=== PATIENT | male | born 1965 | race Caucasian/White ===

== ENCOUNTER 2021-01-17 15:44 | Emergency (ER) | payer OTHER ==
[2021-01-17] MEDS ORDERED: DIPH,PERTUS(ACELL)TETVAC-LF 0.5 ML VIAL IM ONE (16:43)
[2021-01-17] MEDS ORDERED: MORPHINE SULFATE 4 MG/ML SYRINGE IM STA (16:43)
--- NOTE | 2021-01-17 17:36 | XR ---
EXAMINATION TYPE: XR finger RT DATE OF EXAM: 01/17/2021 COMPARISON: NONE HISTORY: Trauma. Pain TECHNIQUE: 3 views FINDINGS: There is laceration deformity of the tip of the thumb. There is also chip fracture of the t ip of the tuft of the distal phalanx. There is no sign of a radiopaque foreign body. IMPRESSION: Laceration deformity with chip fracture of the tuft of the distal phalanx of the thumb.
[2021-01-17] MEDS ORDERED: LIDOCAINE 1% INJ 10MG/ML (20 ML MDV) SQ ONE (17:42)
[2021-01-17] MEDS ORDERED: ceFAZolin 1,000 MG VIAL (IM USE) IM STA (17:44)
--- NOTE | 2021-01-17 17:52 | ED ---
Wound/Laceration HPI - General Chief Complaint: Wound/Laceration Stated Complaint: rt thumb lac Time Seen by Provider: 01/17/21 16:16 Source: patient Mode of arrival: ambulatory Limitations: no limitations - History of Present Illness Initial Comments: 55 year-old male patient presents to the emergency department for evaluation of right thumb injury. Patent crushed his finger in a hydraulic log splitter about an hour ago. Denies taking any medication for pain. Denies any other injuries. Unsure when his last tetanus vaccine was updated. Patient reports significant pain. - Related Data Home Medications Medication Instructions Recorded Confirmed Naproxen 500 mg PO Q12H 01/17/21 01/17/21 Omeprazole 40 mg PO DAILY 01/17/21 01/17/21 Previous Rx's Medication Instructions Recorded Cephalexin [Keflex] 500 mg PO Q6H #28 cap 01/17/21 Ibuprofen [Motrin] 600 mg PO Q8HR PRN #30 tab 01/17/21 Allergies Allergy/AdvReac Type Severity Reaction Status Date / Time meperidine [From Demerol] Allergy Anaphylaxis Verified 01/17/21 18:52 Review of Systems ROS Statement: Those systems with pertinent positive or pertinent negative responses have been documented in the HPI. ROS Other: All systems not noted in ROS Statement are negative. Past Medical History Past Medical History: No Reported History History of Any Multi-Drug Resistant Organisms: None Reported Past Surgical History: No Surgical Hx Reported Past Psychological History: No Psychological Hx Reported Smoking Status: Never smoker Past Alcohol Use History: Occasional Past Drug Use History: None Reported General Exam Limitations: no limitations General appearance: alert, in no apparent distress, other (This is a well- developed, well-nourished adult male patient in no acute distress. Vital signs upon presentation temperature 97.7F, pulse 94, respirations 20, blood pressure 146/90, pulse ox 99% on room air.) Respiratory exam: Present: normal lung sounds bilaterally. Absent: respiratory distress, wheezes, rales, rhonchi, stridor Cardiovascular Exam: Present: regular rate, normal rhythm, normal heart sounds. Absent: systolic murmur, diastolic murmur, rubs, gallop, clicks Extremities exam: Present: full ROM, normal capillary refill, other (Open wound right thumb, there is nail avulsion, no active bleeding. Soft tissue swelling noted. Skin is otherwise pink, warm, dry. Radial pulses 2+ and equal bilaterally.). Absent: tenderness, pedal edema, joint swelling, calf tenderness Neurological exam: Present: alert, oriented X3, CN II-XII intact Psychiatric exam: Present: normal affect, normal mood Skin exam: Present: warm, dry, intact, normal color. Absent: rash Course Vital Signs 01/17/21 01/17/21 15:46 19:59 Temperature 97.7 F 98.1 F Pulse Rate 94 62 Respiratory 20 18 Rate Blood Pressure 146/90 140/95 O2 Sat by Pulse 99 97 Oximetry Procedures - Laceration Laceration #1 Consent Obtained: verbal consent Indication: laceration Site: hand (Right thumb) Size (cm): 3 Description: flap, avulsion, irregular Anesthesia Technique: nerve block Amount (mls): 5 (Bupivicaine 0.5%) Pre-repair: wound explored, irrigated extensively, wound margins revised Type of Sutures: nylon Size of Sutures: 4-0 Number of Sutures: 5 Technique: simple, interrupted Patient Tolerated Procedure: well, no complications Additional Comments: Skin flap left open, pulp injury - Orthopedic Splinting/Casting Injury #1 Side: right Upper Extremity Injury Location: hand Upper Extremity Immobilizer: thumb spica, Santy wrap, synthetic pre-padded splint Medical Decision Making - Medical Decision Making 55-year-old male patient presents to the emergency department today for evaluation of injury to the right thumb. Patient wishes finger and a log splitter prior to arrival. Physical examination did reveal complete nail avulsion, extensive laceration injury to the tip of the thumb. Sutures were placed where possible. Distal tip is open, extensive pulp injury. X-ray showed a chip fracture of the tuft of the distal phalanx. Patient was placed in a thumb spica splint. Did discuss the case with Leslee Raymundo PA-c [facility], instructions to close it as much as possible and follow up with ortho hand specialist this week. Patient was given Kefzol. Tetanus updated. Given pain medication. He will be discharged, wound care instructions given. Return parameters discussed in detail. He verbalizes understanding and agrees with this plan. Case discussed with my attending Dr. Velásquez. - Radiology Data Radiology results: report reviewed, image reviewed Disposition Clinical Impression: Laceration of right thumb, Nail avulsion, finger, Avulsion of skin of right thumb Disposition: HOME SELF-CARE Condition: Good Instructions (If sedation given, give patient instructions): Care For Your Stitches (ED), Laceration (ED), Skin Avulsion (ED), Nail Avulsion (ED) Additional Instructions: Change dressing once daily. Apply bacitracin ointment to the areas as directed. Follow-up with the hand specialist as soon as possible, call Tuesday for an appointment. Return to the emergency department for any new, worsening, or concerning symptoms. Prescriptions: Cephalexin [Keflex] 500 mg PO Q6H #28 cap Ibuprofen [Motrin] 600 mg PO Q8HR PRN #30 tab PRN Reason: Pain Is patient prescribed a controlled substance at d/c from ED?: No Referrals: [facility],Clinic [Primary Care Provider] - 1-2 days Gustavo Leon DO [Doctor of Osteopathic Medicine] - 1-2 days Time of Disposition: 19:51
[2021-01-17] MEDS ORDERED: BACITRACIN OINT 1 EACH PACKET TOPICAL ONE (17:57)
[2021-01-17] MEDS ORDERED: BUPIVACAINE (PF) 0.5% 30 ML VIAL SQ STA (18:07)
[2021-01-17] MEDS ORDERED: ACET/COD 300 MG/30 MG STARTER PACK 6 TAB BTL PO STA (19:51)
[2021-01-17 20:01] VITALS: BP 140/95; PULSE 62; RESP 18; TEMP 98.1
== END 2021-01-17 20:00 | disposition home or self-care (01) ==
LOC: EC 15:44
DX: S61.111A Laceration without foreign body of right thumb with damage to nail, initial encounter (principal); Z79.1 Long term (current) use of non-steroidal anti-inflammatories (NSAID); Z79.899 Other long term (current) drug therapy; Z88.5 Allergy status to narcotic agent; W23.0XXA Caught, crushed, jammed, or pinched between moving objects, initial encounter
CPT/HCPCS: 73140; 90715; 12002; 99283; 96372; 90471; J2270; J0690

== ENCOUNTER 2022-11-17 22:10 | Emergency (ER) | payer OTHER ==
[2022-11-17 22:24] VITALS: BP 124/87; PULSE 87; RESP 20; TEMP 97.6
[2022-11-17 23:02] LABS: Basophils # (A) 0.1 k/uL (0-0.2); Basophils % (A) 1 %; Eosinophils # (A) 0.2 k/uL (0-0.7); Eosinophils % (A) 2 %; HCT 45.6 % (39.0-53.0); HGB 15.2 gm/dL (13.0-17.5); Lymphocytes # (A) 3.9 k/uL (1.0-4.8); Lymphocytes % (A) 47 %; MCHC 33.3 g/dL (31.0-37.0); MCV 99.2 fL (80.0-100.0); Mean Platelet Volume 7.3; Monocytes # (A) 0.4 k/uL (0-1.0); Monocytes % (A) 4 %; Neutrophils # (A) 3.7 k/uL (1.3-7.7); Neutrophils % (A) 44 %; Platelet Count 267 k/uL (150-450); RBC 4.59 m/uL (4.30-5.90); RDW 12.4 % (11.5-15.5); WBC 8.4 k/uL (3.8-10.6)
--- NOTE | 2022-11-17 23:08 | ED ---
General Adult HPI - General Source: patient Mode of arrival: ambulatory Limitations: no limitations <Gregg Hicks - Last Filed: 11/17/22 23:06> <Elsa Colon - Last Filed: 11/17/22 23:27> <Evelyn Parker - Last Filed: 11/28/22 00:03> - General Chief complaint: Recheck/Abnormal Lab/Rx Stated complaint: Critical Lab Time Seen by Provider: 11/17/22 23:08 - History of Present Illness Initial comments: Dictation was produced using [employer] dictation software. please excuse any grammatical, word or spelling errors. Time seen by provider: 11:08 PM, 11/17/2022 Medical screening exam: 57-year-old male presents to the emergency Department for outpatient lab abnormality. Patient was getting blood work form for anticipation of yearly physical next week. He was told that his potassium 6.0. Patient denies any symptoms. Visual Physical Exam Vital signs reviewed General: Well-appearing, nontoxic, no acute distress. Head: Normocephalic, atraumatic Eyes: PERRLA, EOMI ENT: Airway patent Chest: Nonlabored breathing Skin: No visual rash, normal skin tone Neuro: Alert and oriented 3 Musculoskeletal: No gross abnormalities (Gregg Hicks) 57-year-old male with past medical history of daily alcohol usage presents emergency department for abnormal labs. He has an appointment scheduled his primary care physician next week for his routine physical. Laboratory studies conducted today and it was reported the patient's potassium was high at 6. His office called him for critical labs and to limit needed to be reevaluated at his local ER. Patient denies any symptoms. Does admit to drinking some alcohol today. No headaches or visual changes. No chest pain or shortness of breath. No other alleviating, precipitating or modifying factors (Evelyn Parker) - Related Data Home Medications Medication Instructions Recorded Confirmed Naproxen 500 mg PO Q12H 01/17/21 01/17/21 Omeprazole 40 mg PO DAILY 01/17/21 01/17/21 Previous Rx's Medication Instructions Recorded Cephalexin [Keflex] 500 mg PO Q6H #28 cap 01/17/21 Ibuprofen [Motrin] 600 mg PO Q8HR PRN #30 tab 01/17/21 Allergies Allergy/AdvReac Type Severity Reaction Status Date / Time meperidine [From Demerol] Allergy Anaphylaxis Verified 11/17/22 22:24 Review of Systems ROS Other: All systems not noted in ROS Statement are negative. <Gregg Hicks - Last Filed: 11/17/22 23:06> ROS Other: All systems not noted in ROS Statement are negative. <Elsa Colon - Last Filed: 11/17/22 23:27> ROS Other: All systems not noted in ROS Statement are negative. <Evelyn Parker - Last Filed: 11/28/22 00:03> ROS Statement: Those systems with pertinent positive or pertinent negative responses have been documented in the HPI. Past Medical History Past Medical History: No Reported History History of Any Multi-Drug Resistant Organisms: MRSA Date of last positivie culture/infection: 01/30/21 MDRO Source:: Right fifth finger Past Surgical History: Appendectomy, Orthopedic Surgery, Tonsillectomy Past Psychological History: No Psychological Hx Reported Smoking Status: Never smoker Past Alcohol Use History: Daily Past Drug Use History: None Reported <Gregg Hicks - Last Filed: 11/17/22 23:06> General Exam Limitations: no limitations <Gregg Hicks - Last Filed: 11/17/22 23:06> General appearance: alert, in no apparent distress Head exam: Present: atraumatic, normocephalic, normal inspection Eye exam: Present: normal appearance, PERRL, EOMI. Absent: scleral icterus, conjunctival injection, periorbital swelling ENT exam: Present: normal exam, mucous membranes moist Neck exam: Present: normal inspection. Absent: tenderness, meningismus, lymphadenopathy Respiratory exam: Present: normal lung sounds bilaterally. Absent: respiratory distress, wheezes, rales, rhonchi, stridor Cardiovascular Exam: Present: regular rate, normal rhythm, normal heart sounds. Absent: systolic murmur, diastolic murmur, rubs, gallop, clicks GI/Abdominal exam: Present: soft, normal bowel sounds. Absent: distended, tenderness, guarding, rebound, rigid Extremities exam: Present: normal inspection, full ROM, normal capillary refill. Absent: tenderness, pedal edema, joint swelling, calf tenderness Back exam: Present: normal inspection Neurological exam: Present: alert, oriented X3, CN II-XII intact Psychiatric exam: Present: normal affect, normal mood Skin exam: Present: warm, dry, intact, normal color. Absent: rash <Evelyn Parker - Last Filed: 11/28/22 00:03> Course Vital Signs 11/17/22 22:20 Temperature 97.6 F Pulse Rate 87 Respiratory 20 Rate Blood Pressure 124/87 O2 Sat by Pulse 95 Oximetry EKG Findings - EKG Comments: EKG Findings:: EKG demonstrates sinus rhythm rate of 72. MI interval 141. QRS 94. QTC 386. No acute ST segment elevations or depressions <Evelyn Parker - Last Filed: 11/28/22 00:03> Medical Decision Making - Lab Data Result diagrams: 11/17/22 22:50 <Gregg Hicks - Last Filed: 11/17/22 23:06> - Lab Data Result diagrams: 11/17/22 22:50 <Elsa Colon - Last Filed: 11/17/22 23:27> - Lab Data Result diagrams: 11/17/22 22:50 11/17/22 22:50 <Evelyn Parker - Last Filed: 11/28/22 00:03> - Medical Decision Making Was pt. sent in by a medical professional or institution (SKYE Dyer, CUSTOMER CARE MANAGER, urgent care, hospital, or senior living...) When possible be specific @ -[facility] Did you speak to anyone other than the patient for history (EMS, parent, family, police, friend...)? What history was obtained from this source @ -No Did you review nursing and triage notes (agree or disagree)? Why? @ -I reviewed and agree with nursing and triage notes Were old charts reviewed (outside hosp., previous admission, EMS record, old EKG, old radiological studies, urgent care reports/EKG's, senior living records)? Report findings @ -No old charts were reviewed Differential Diagnosis (chest pain, altered mental status, abdominal pain women, abdominal pain men, vaginal bleeding, weakness, fever, dyspnea, syncope, headache, dizziness, GI bleed, back pain, seizure, CVA, palpatations, mental health, musculoskeletal)? @ -hyperkalemia, david, lab error EKG interpreted by me (3pts min.). @ -yes X-rays interpreted by me (1pt min.). @ -Not done CT interpreted by me (1pt min.). @ -None done U/S interpreted by me (1pt. min.). @ -None done What testing was considered but not performed or refused? (CT, X-rays, U/S, labs)? Why? @ -None What meds were considered but not given or refused? Why? @ -None Did you discuss the management of the patient with other professionals (professionals i.e. DrJacy, PA, CUSTOMER CARE MANAGER, lab, RT, psych nurse, social work assistant, aircraft engine mechanic, teacher, corporate development officer, behavioral health case manager)? Give summary @ -None Was smoking cessation discussed for >3mins.? @ -No Was critical care preformed (if so, how long)? @ -No Were there social determinants of health that impacted care today? How? (Homelessness, low income, unemployed, alcoholism, drug addiction, transportation, low edu. Level, literacy, decrease access to med. care, prison, rehab)? @ -No Was there de-escalation of care discussed even if they declined (Discuss DNR or withdrawal of care, Hospice)? DNR status @ -No What co-morbidities impacted this encounter? (DM, HTN, Smoking, COPD, CAD, Cancer, CVA, ARF, Chemo, Hep., AIDS, mental health diagnosis, sleep apnea, morbid obesity)? @ -None Was patient admitted / discharged? Hospital course, mention meds given and route, prescriptions, significant lab abnormalities, going to OR and other pertinent info. @ -Upon arrival the patient is placed into [facility] where laboratory studies are drawn. Laboratory studies are reviewed and potassium is 4.2. Alcohol 84. Patient resides in the emergency department for almost 3 hours and is sober. Repeat labs are discussed with the patient. He is stable for discharge home at this time. He is given a copy of his lab work. Return for any new or worsening symptoms. Patient discharged home in stable condition Undiagnosed new problem with uncertain prognosis? @ -No Drug Therapy requiring intensive monitoring for toxicity (Heparin, Nitro, Insulin, Cardizem)? @ -No Were any procedures done? @ -No Diagnosis/symptom? @ -encouter for abnormal labs, normal exam Acute, or Chronic, or Acute on Chronic? @ -acute Uncomplicated (without systemic symptoms) or Complicated (systemic symptoms)? @ -uncomplicated Side effects of treatment? @ -No Exacerbation, Progression, or Severe Exacerbation? @ -No Poses a threat to life or bodily function? How? (Chest pain, [place], NH, pneumonia, PE, COPD, DKA, ARF, appy, cholecystitis, CVA, Diverticulitis, Homicidal, Suicidal, threat to staff... and all critical care pts) @ -yes (Evelyn Parker) - Lab Data Lab Results 11/17/22 11/17/22 11/17/22 Range/Units 22:50 22:50 22:50 WBC 8.4 (3.8-10.6) k/uL RBC 4.59 (4.30-5.90) m/uL Hgb 15.2 (13.0-17.5) gm/dL Hct 45.6 (39.0-53.0) % MCV 99.2 (80.0-100.0) fL MCH 33.0 (25.0-35.0) pg MCHC 33.3 (31.0-37.0) g/dL RDW 12.4 (11.5-15.5) % Plt Count 267 (150-450) k/uL MPV 7.3 Neutrophils % 44 % Lymphocytes % 47 % Monocytes % 4 % Eosinophils % 2 % Basophils % 1 % Neutrophils # 3.7 (1.3-7.7) k/uL Lymphocytes # 3.9 (1.0-4.8) k/uL Monocytes # 0.4 (0-1.0) k/uL Eosinophils # 0.2 (0-0.7) k/uL Basophils # 0.1 (0-0.2) k/uL PT 9.6 (9.0-12.0) sec INR 0.9 (<1.2) APTT 24.9 (22.0-30.0) sec Sodium 139 (137-145) mmol/L Potassium 4.2 (3.5-5.1) mmol/L Chloride 106 (98-107) mmol/L Carbon Dioxide 23 (22-30) mmol/L Anion Gap 10 mmol/L BUN 12 (9-20) mg/dL Creatinine 0.96 (0.66-1.25) mg/dL Est GFR (CKD-EPI)AfAm >90 (>60 ml/min/1.73 sqM) Est GFR (CKD-EPI)NonAf 89 (>60 ml/min/1.73 sqM) Glucose 96 (74-99) mg/dL Calcium 8.8 (8.4-10.2) mg/dL Phosphorus 5.1 H (2.5-4.5) mg/dL Magnesium 2.1 (1.6-2.3) mg/dL Total Bilirubin 0.3 (0.2-1.3) mg/dL AST 36 (17-59) U/L ALT 30 (4-49) U/L Alkaline Phosphatase 81 (38-126) U/L Total Protein 6.7 (6.3-8.2) g/dL Albumin 4.3 (3.5-5.0) g/dL Serum Alcohol 84 mg/dL Disposition <Gregg Hicks - Last Filed: 11/17/22 23:06> <Elsa Colon - Last Filed: 11/17/22 23:27> Is patient prescribed a controlled substance at d/c from ED?: No Time of Disposition: 00:58 <Evelyn Parker - Last Filed: 11/28/22 00:03> Clinical Impression: Abnormal laboratory test Disposition: HOME SELF-CARE Condition: Stable Instructions (If sedation given, give patient instructions): Normal Exam (ED) Additional Instructions: Your potassium was normal. Please follow-up with your doctor your regularly scheduled appointment Referrals: [facility],Clinic [Primary Care Provider] - 1-2 days
[2022-11-17 23:12] LABS: INR 0.9 (<1.2); Partial Thromboplastin Time 24.9 sec (22.0-30.0); Prothrombin Time 9.6 sec (9.0-12.0)
[2022-11-17 23:24] LABS: ALT 30 U/L (4-49); AST 36 U/L (17-59); African American GFR (CKD) >90 (>60 ml/min/1.73 sqM); Albumin 4.3 g/dL (3.5-5.0); Alkaline Phosphatase 81 U/L (38-126); Anion Gap 10 mmol/L; Blood Urea Nitrogen 12 mg/dL (9-20); Calcium 8.8 mg/dL (8.4-10.2); Carbon Dioxide 23 mmol/L (22-30); Chloride 106 mmol/L (98-107); Glucose 96 mg/dL (74-99); Magnesium 2.1 mg/dL (1.6-2.3); Non-African American GFR(CKD) 89 (>60 ml/min/1.73 sqM); Phosphorus 5.1 mg/dL (2.5-4.5); Potassium 4.2 mmol/L (3.5-5.1); Sodium 139 mmol/L (137-145); Total Bilirubin 0.3 mg/dL (0.2-1.3); Total Protein 6.7 g/dL (6.3-8.2)
[2022-11-17 23:29] LABS: Alcohol 84 mg/dL
== END 2022-11-18 01:05 | disposition home or self-care (01) ==
LOC: EC 22:10
DX: R79.9 Abnormal finding of blood chemistry, unspecified (principal); Z88.5 Allergy status to narcotic agent
CPT/HCPCS: 36415; 80053; 80320; 83735; 84100; 85025; 85610; 85730; 93005; 99283

== ENCOUNTER → 2022-12-22 | Outpatient (CLI) | payer OTHER ==
--- NOTE | 2022-12-22 10:18 | US ---
EXAMINATION TYPE: US thyroid st tissue head/neck DATE OF EXAM: 12/22/2022 COMPARISON: NONE CLINICAL INDICATION: Male, 57 years old with history of R94.6 ABN THYROID FUNCTION STUDIES; Abnormal labs GLAND SIZE: Right Lobe: 5.6 x 2.5 x 1.9 cm Overall Parenchyma: homogenous Left Lobe: 5.3 x 2.2 x 1.7 cm Overall Parenchyma: homogeneous Isthmus Thickness: 0.3 cm NODULES RIGHT: # of nodules measured on right: 1 1. 0.6 X 0.4 x 0.7 cm, mid medial, solid or almost completely solid, isoechoic nodule, which is wid er than tall, with ill-defined margins, without echogenic foci. Prior size: No prior LEFT: # of nodules measured on left: 0 ISTHMUS: # of nodules measured in the isthmus: 0 Bilateral neck scanned, no evidence of lymphadenopathy. Enlarged thyroid, sub-centimeter nodule right lobe. IMPRESSION: No suspicious enlarged thyroid nodules. Follow-up can be performed as clinically indicated
== END | disposition home or self-care (01) ==
LOC: RADUSWWP 09:20
DX: R94.6 Abnormal results of thyroid function studies (principal)
CPT/HCPCS: 76536

== ENCOUNTER 2024-08-28 10:51 | Inpatient (IN) | payer OTHER ==
--- NOTE | 2024-08-28 11:27 | ED ---
Abdominal Pain HPI - General Chief Complaint: Abdominal Pain Stated Complaint: abd pain Time Seen by Provider: 08/28/24 11:09 Source: patient, RN notes reviewed Mode of arrival: ambulatory Limitations: no limitations - History of Present Illness Initial Comments: 39-year-old male presents emergency department complaint of abdominal pain. Patient states that started after eating he developed discomfort he states he felt very nauseous did have episodes of emesis. He states pain is worse in the right lower quadrant right flank and back region. Patient had a prior appendectomy no fevers or chills no chest pain or shortness of breath. Patient states pain is worse when laying flat. - Related Data Home Medications Medication Instructions Recorded Confirmed Naproxen 500 mg PO Q12H 01/17/21 01/17/21 Omeprazole 40 mg PO DAILY 01/17/21 01/17/21 Previous Rx's Medication Instructions Recorded Cephalexin [Keflex] 500 mg PO Q6H #28 cap 01/17/21 Ibuprofen [Motrin] 600 mg PO Q8HR PRN #30 tab 01/17/21 Allergies Allergy/AdvReac Type Severity Reaction Status Date / Time meperidine [From Demerol] Allergy Anaphylaxis Verified 08/28/24 14:33 Review of Systems ROS Statement: Those systems with pertinent positive or pertinent negative responses have been documented in the HPI. ROS Other: All systems not noted in ROS Statement are negative. Past Medical History Past Medical History: No Reported History History of Any Multi-Drug Resistant Organisms: MRSA Date of last positivie culture/infection: 01/30/21 MDRO Source:: Right fifth finger Past Surgical History: Appendectomy, Orthopedic Surgery, Tonsillectomy Past Psychological History: No Psychological Hx Reported Smoking Status: Never smoker Past Alcohol Use History: Daily Past Drug Use History: None Reported General Exam Limitations: no limitations General appearance: alert, in no apparent distress Head exam: Present: atraumatic, normocephalic, normal inspection Neck exam: Present: normal inspection. Absent: tenderness, meningismus, lymphadenopathy Respiratory exam: Present: normal lung sounds bilaterally. Absent: respiratory distress, wheezes, rales, rhonchi, stridor Cardiovascular Exam: Present: normal rhythm, tachycardia, normal heart sounds. Absent: systolic murmur, diastolic murmur, rubs, gallop, clicks GI/Abdominal exam: Present: soft, tenderness (Right upper quadrant tenderness), normal bowel sounds. Absent: distended, guarding, rebound, rigid Back exam: Absent: CVA tenderness (R), CVA tenderness (L) Neurological exam: Present: alert Skin exam: Present: warm, dry, intact, normal color. Absent: rash Course Vital Signs 08/28/24 11:01 Temperature 98.9 F Pulse Rate 118 H Respiratory 20 Rate Blood Pressure 121/77 O2 Sat by Pulse 96 Oximetry Medical Decision Making - Medical Decision Making Was pt. sent in by a medical professional or institution (, PA, INVESTMENT BANKER, urgent care, hospital, or detention...) When possible be specific @ -No Did you speak to anyone other than the patient for history (EMS, parent, family, police, friend...)? What history was obtained from this source @ -No Did you review nursing and triage notes (agree or disagree)? Why? @ -I reviewed and agree with nursing and triage notes Were old charts reviewed (outside hosp., previous admission, EMS record, old EKG, old radiological studies, urgent care reports/EKG's, detention records)? Report findings @ -No old charts were reviewed Differential Diagnosis (chest pain, altered mental status, abdominal pain women, abdominal pain men, vaginal bleeding, weakness, fever, dyspnea, syncope, headache, dizziness, GI bleed, back pain, seizure, CVA, palpatations, mental health, musculoskeletal)? @ -Differential Abdominal Pain Men: Appendicitis, cholecystitis, diverticulosis, ischemic bowel, pancreatitis, hepatitis, UTI, gastroenteritis, AAA, incarcerated hernia, bowel obstruction, constipation, inflammatory bowel, hepatitis, peptic ulcer disease, splenic infarction, perforated viscus, testicular torsion, this is not meant to be an all-inclusive list EKG interpreted by me (3pts min.). @ -As above X-rays interpreted by me (1pt min.). @ -None done CT interpreted by me (1pt min.). @ -CT abdomen pelvis showing evidence of acute cholecystitis. Cholecystic fluid no dilation U/S interpreted by me (1pt. min.). @ -Sound concerning for cholecystitis there is minimal fluid, no notable stones within the duct What testing was considered but not performed or refused? (CT, X-rays, U/S, lab s)? Why? @ -None What meds were considered but not given or refused? Why? @ -None Did you discuss the management of the patient with other professionals (professionals i.e. , PA, INVESTMENT BANKER, lab, RT, psych nurse, social work faculty member, aesthetician, teacher, project officer, senior case manager)? Give summary @ -Dr. rahman patient's finding and admission Was smoking cessation discussed for >3mins.? @ -No Was critical care preformed (if so, how long)? @ -No Were there social determinants of health that impacted care today? How? (Homelessness, low income, unemployed, alcoholism, drug addiction, transportation, low edu. Level, literacy, decrease access to med. care, [place] [facility], rehab)? @ -No Was there de-escalation of care discussed even if they declined (Discuss DNR or withdrawal of care, Hospice)? DNR status @ -No What co-morbidities impacted this encounter? (DM, HTN, Smoking, COPD, CAD, Cancer, CVA, ARF, Chemo, Hep., AIDS, mental health diagnosis, sleep apnea, morbid obesity)? @ -None Was patient admitted / discharged? Hospital course, mention meds given and route, prescriptions, significant lab abnormalities, going to OR and other pertinent info. @ -Admitted to surgery for further evaluation management. Patient was started on Zosyn analgesics IV fluids. Undiagnosed new problem with uncertain prognosis? @ -No Drug Therapy requiring intensive monitoring for toxicity (Heparin, Nitro, Insulin, Cardizem)? @ -No Were any procedures done? @ -No Diagnosis/symptom? @Acute cholecystitis Acute, or Chronic, or Acute on Chronic? @ -Acute Uncomplicated (without systemic symptoms) or Complicated (systemic symptoms)? @ -Complicated Side effects of treatment? @ -No Exacerbation, Progression, or Severe Exacerbation? @ -No Poses a threat to life or bodily function? How? (Chest pain, [place], [place], pneumonia, PE, COPD, DKA, ARF, appy, cholecystitis, CVA, Diverticulitis, Homicidal, Suicidal, threat to staff... and all critical care pts) @ -Yes surgical risk - Lab Data Result diagrams: 08/28/24 12:23 08/28/24 12:23 Lab Results 08/28/24 08/28/24 08/28/24 Range/Units 12:23 12:23 12:23 WBC 18.5 H (3.8-10.6) k/uL RBC 4.61 (4.30-5.90) m/uL Hgb 15.2 (13.0-17.5) gm/dL Hct 45.8 (39.0-53.0) % MCV 99.2 (80.0-100.0) fL MCH 33.0 (25.0-35.0) pg MCHC 33.2 (31.0-37.0) g/dL RDW 13.0 (11.5-15.5) % Plt Count 283 (150-450) k/uL MPV 7.8 Neutrophils % 91 % Lymphocytes % 6 % Monocytes % 2 % Eosinophils % 1 % Basophils % 0 % Neutrophils # 16.8 H (1.3-7.7) k/uL Lymphocytes # 1.0 (1.0-4.8) k/uL Monocytes # 0.4 (0-1.0) k/uL Eosinophils # 0.2 (0-0.7) k/uL Basophils # 0.1 (0-0.2) k/uL Sodium 139 (137-145) mmol/L Potassium 4.3 (3.5-5.1) mmol/L Chloride 103 (98-107) mmol/L Carbon Dioxide 30 (22-30) mmol/L Anion Gap 6 mmol/L BUN 8 L (9-20) mg/dL Creatinine 0.85 (0.66-1.25) mg/dL Est GFR (CKD-EPI)AfAm >90 (>60 ml/min/1.73 sqM) Est GFR (CKD-EPI)NonAf >90 (>60 ml/min/1.73 sqM) Glucose 119 H (74-99) mg/dL Plasma Lactic Acid Raf 1.2 (0.7-2.0) mmol/L Calcium 9.7 (8.4-10.2) mg/dL Total Bilirubin 0.6 (0.2-1.3) mg/dL AST 32 (17-59) U/L ALT 24 (4-49) U/L Alkaline Phosphatase 70 (38-126) U/L Troponin I (0.000-0.034) ng/mL Total Protein 6.4 (6.3-8.2) g/dL Albumin 4.2 (3.5-5.0) g/dL Amylase 48 (30-110) U/L Lipase 77 (23-300) U/L Urine Color Urine Appearance (Clear) Urine pH (5.0-8.0) Ur Specific Mccarr (1.001-1.035) Urine Protein (Negative) Urine Glucose (UA) (Negative) Urine Ketones (Negative) Urine Blood (Negative) Urine Nitrite (Negative) Urine Bilirubin (Negative) Urine Urobilinogen (<2.0) mg/dL Ur Leukocyte Esterase (Negative) 08/28/24 08/28/24 Range/Units 12:23 13:46 WBC (3.8-10.6) k/uL RBC (4.30-5.90) m/uL Hgb (13.0-17.5) gm/dL Hct (39.0-53.0) % MCV (80.0-100.0) fL MCH (25.0-35.0) pg MCHC (31.0-37.0) g/dL RDW (11.5-15.5) % Plt Count (150-450) k/uL MPV Neutrophils % % Lymphocytes % % Monocytes % % Eosinophils % % Basophils % % Neutrophils # (1.3-7.7) k/uL Lymphocytes # (1.0-4.8) k/uL Monocytes # (0-1.0) k/uL Eosinophils # (0-0.7) k/uL Basophils # (0-0.2) k/uL Sodium (137-145) mmol/L Potassium (3.5-5.1) mmol/L Chloride (98-107) mmol/L Carbon Dioxide (22-30) mmol/L Anion Gap mmol/L BUN (9-20) mg/dL Creatinine (0.66-1.25) mg/dL Est GFR (CKD-EPI)AfAm (>60 ml/min/1.73 sqM) Est GFR (CKD-EPI)NonAf (>60 ml/min/1.73 sqM) Glucose (74-99) mg/dL Plasma Lactic Acid Raf (0.7-2.0) mmol/L Calcium (8.4-10.2) mg/dL Total Bilirubin (0.2-1.3) mg/dL AST (17-59) U/L ALT (4-49) U/L Alkaline Phosphatase (38-126) U/L Troponin I <0.012 (0.000-0.034) ng/mL Total Protein (6.3-8.2) g/dL Albumin (3.5-5.0) g/dL Amylase (30-110) U/L Lipase (23-300) U/L Urine Color Colorless Urine Appearance Clear (Clear) Urine pH 7.0 (5.0-8.0) Ur Specific Mccarr 1.023 (1.001-1.035) Urine Protein Negative (Negative) Urine Glucose (UA) Negative (Negative) Urine Ketones Negative (Negative) Urine Blood Negative (Negative) Urine Nitrite Negative (Negative) Urine Bilirubin Negative (Negative) Urine Urobilinogen <2.0 (<2.0) mg/dL Ur Leukocyte Esterase Negative (Negative) - EKG Data -: EKG Interpreted by Me EKG Comments: EKG performed at 11: 50 sinus rhythm rate 98 IL 133 QRS 98 QT/QTc 338/393 Disposition Clinical Impression: Acute cholecystitis Disposition: ADMITTED IP TO THIS [facility] Condition: Fair Time of Disposition: 14:07
[2024-08-28] MEDS: ONDANSETRON 4 MG/2 ML VIAL IVP STA (12:25)
[2024-08-28] MEDS: HYDROmorphone 0.5 MG/0.5 ML SYRINGE IVP STA (12:25)
[2024-08-28] MEDS: SODIUM CHLORIDE 0.9% 1,000 ML IV STA (12:25)
[2024-08-28] MEDS: SODIUM CHLORIDE 0.9% 500 ML 500 ML IV STA (12:26)
[2024-08-28 12:41] LABS: WBC 18.5 k/uL (3.8-10.6)
[2024-08-28 12:42] LABS: Basophils # (A) 0.1 k/uL (0-0.2); Basophils % (A) 0 %; Eosinophils # (A) 0.2 k/uL (0-0.7); Eosinophils % (A) 1 %; HCT 45.8 % (39.0-53.0); HGB 15.2 gm/dL (13.0-17.5); Lymphocytes % (A) 6 %; MCHC 33.2 g/dL (31.0-37.0); MCV 99.2 fL (80.0-100.0); Mean Platelet Volume 7.8; Monocytes # (A) 0.4 k/uL (0-1.0); Monocytes % (A) 2 %; Neutrophils # (A) 16.8 k/uL (1.3-7.7); Neutrophils % (A) 91 %; Platelet Count 283 k/uL (150-450); RBC 4.61 m/uL (4.30-5.90)
[2024-08-28 13:02] LABS: ALT 24 U/L (4-49); AST 32 U/L (17-59); African American GFR (CKD) >90 (>60 ml/min/1.73 sqM); Albumin 4.2 g/dL (3.5-5.0); Alkaline Phosphatase 70 U/L (38-126); Amylase 48 U/L (30-110); Anion Gap 6 mmol/L; Blood Urea Nitrogen 8 mg/dL (9-20); Calcium 9.7 mg/dL (8.4-10.2); Carbon Dioxide 30 mmol/L (22-30); Chloride 103 mmol/L (98-107); Glucose 119 mg/dL (74-99); Lipase 77 U/L (23-300); Non-African American GFR(CKD) >90 (>60 ml/min/1.73 sqM); Potassium 4.3 mmol/L (3.5-5.1); Sodium 139 mmol/L (137-145); Total Bilirubin 0.6 mg/dL (0.2-1.3); Total Protein 6.4 g/dL (6.3-8.2)
--- NOTE | 2024-08-28 13:03 | US ---
EXAMINATION TYPE: US gallbladder DATE OF EXAM: 08/28/2024 COMPARISON: NONE CLINICAL INDICATION: Male, 59 years old with history of pain; RUQ Pain started last night with nausea and vomiting; Hx appendectomy; patient denies any other signs, symptoms, or relevant history TECHNIQUE: Grayscale and color Doppler imaging of the right upper quadrant was performed. FINDINGS: EXAM MEASUREMENTS: Liver Length: 17.5 cm Gallbladder Wall: 0.4 cm CBD: 0.8 cm Right Kidney: 12.8 x 4.6 x 5.0 cm PROMOTIONAL REPRESENTATIVE NOTES: Pancreas: Obscured by bowel gas Liver: wnl Gallbladder: ? Hydropic, ?Polyps seen, ?trace adjacent fluid Evidence for sonographic Issa's sign: Yes CBD: Dilated Right Kidney: wnl IMPRESSION: 1. Mild hepatomegaly. 2. There is dilation of the CBD. Distal CBD stone or pathology in the differential diagnosis. The gal lbladder also is hydropic and there is a small amount of sludge\gallstones. Cannot exclude a trace of pericholecystic fluid. Consider clinical correlation for cholecystitis. [facility], , 08/28/2024 1:00 PM
--- NOTE | 2024-08-28 13:50 | CT ---
EXAMINATION TYPE: CT abdomen pelvis w con CT DLP: 718.9 mGycm, Automated exposure control for dose reduction was used. DATE OF EXAM: 08/28/2024 1:42 PM COMPARISON: Gallbladder ultrasound 08/28/2024 CLINICAL INDICATION:Male, 59 years old with history of abd pain; Abdominal pain TECHNIQUE: Standard CT of the abdomen and pelvis following the administration of 100 cc of Isovue 3 00 IV contrast material. Coronal and sagittal reformats were performed. FINDINGS: LOWER CHEST: Posterior dependent subsegmental atelectasis is noted. ABDOMEN LIVER: No focal lesion. Mild prominent size measuring 18.0 cm in CC dimension. GALLBLADDER AND BILE DUCTS: Distended gallbladder with wall thickening and surrounding fat stranding. Wall thickening suggested. No biliary ductal dilatation. Common bile duct measures 6 mm at the pancr eatic head. PANCREAS: Unremarkable. SPLEEN: Unremarkable. ADRENAL GLANDS: Unremarkable. KIDNEYS AND URETERS: No evidence of hydronephrosis or renal calculus. The kidneys enhance symmetrical ly. Prominent left external pelvis. Contrast is demonstrated within both collecting systems on the de layed phase. PELVIS BLADDER: Unremarkable REPRODUCTIVE: Unremarkable. ABDOMEN & PELVIS STOMACH AND BOWEL: Stomach and duodenum are unremarkable. No focal bowel wall thickening or surroundi ng inflammatory changes. The appendix is not identified however there is no surrounding inflammatory changes in the region of the right lower quadrant. No evidence of bowel obstruction. PERITONEUM: No evidence of pneumoperitoneum or free fluid. VASCULATURE: Mild atherosclerotic calcifications are present throughout the abdominal aorta and its b ranches. No evidence of aortic aneurysm. MUSCULOSKELETAL: No acute osseous abnormalities. Mild disc degeneration changes are present throughou t the thoracolumbar spine. LYMPH NODES: No gross evidence for lymphadenopathy. SOFT TISSUE/ABDOMINAL WALL: Left gluteal superficial 1.4 cm lesion likely representing a benign proce ss such as a sebaceous cyst. IMPRESSION: 1. Distended gallbladder with pericholecystic fluid and fat stranding highly concerning for acute ch olecystitis. No CT evidence for biliary ductal dilatation. 2. Mild hepatomegaly. [facility], , 08/28/2024 1:48 PM
[2024-08-28 13:58] LABS: Appearance,Urine Clear (Clear); Bilirubin,Urine Negative (Negative); Blood,Urine Negative (Negative); Color,Urine Colorless; Glucose,Urine (UA) Negative (Negative); Ketones,Urine Negative (Negative); Leukocyte Esterase,Urine Negative (Negative); Nitrite,Urine Negative (Negative); Protein,Urine Negative (Negative); Specific Gravity,Urine 1.023 (1.001-1.035); Urobilinogen,Urine <2.0 mg/dL (<2.0)
[2024-08-28] MEDS ORDERED: NALOXONE 0.4 MG/ML 1 ML VIAL IV PRN (14:06)
[2024-08-28] MEDS: HYDROmorphone 0.5 MG/0.5 ML SYRINGE IVP PRN (14:43)
[2024-08-28] MEDS: SODIUM CHLORIDE 0.9% 1,000 ML IV SCH (14:43)
[2024-08-28] MEDS: PIPERACILLIN-TAZOBACTAM 3.375 GM in SODIUM CHLORIDE 0.9% 100 ML IVPB STA (15:07)
--- NOTE | 2024-08-28 15:17 | P.GSCN ---
History of Present Illness Consult date: 08/28/24 Reason for Consult: Cholecystitis History of present illness: Patient is a 59-year-old male who presents with acute onset of right-sided abdominal pain. Patient states that his pain that started acutely after p.o. intake last night. He endorses multiple episodes of emesis as well as nausea. He denies any current fevers or chills. No shortness of breath or chest pain. He denies any exacerbating or alleviating factors of the abdominal pain. Denies any prior episodes such as this. No melena or hematochezia. No hematemesis. He endorses flatus, but states that he has had loose bowel movements for the past 1 day as well. Ambulatory and urinating without issue. Upon presentation to [facility] emergency department cross-sectional imaging was obtained which showed evidence of gallbladder wall thickening and pericholecystic fluid conc erning for acute cholecystitis. No evidence of CBD dilatation was seen on cross-sectional imaging. Right upper quadrant ultrasound was obtained which confirmed evidence of pericholecystic fluid and gallbladder wall thickening. Review of Systems Negative except for as stated above Past Medical History Past Medical History: No Reported History History of Any Multi-Drug Resistant Organisms: MRSA Year Discovered:: 01/30/21 MDRO Source:: Right fifth finger Past Surgical History: Appendectomy, Orthopedic Surgery, Tonsillectomy Past Psychological History: No Psychological Hx Reported Smoking Status: Never smoker Past Alcohol Use History: Daily Past Drug Use History: None Reported Medications and Allergies Home Medications Medication Instructions Recorded Confirmed Type Naproxen 500 mg PO DAILY 01/17/21 08/28/24 History Cholecalciferol [Vitamin D3 (25 25 mcg PO DAILY 08/28/24 08/28/24 History Mcg = 1000 Iu)] L.acidoph,Paracasei, B.lactis 1 cap PO DAILY 08/28/24 08/28/24 History [Probiotic] Mv-Min/Folic/K1/Lycopen/Lutein 1 tab PO DAILY 08/28/24 08/28/24 History [Centrum Silver Men Tablet] Omeprazole [PriLOSEC] 40 mg PO DAILY 08/28/24 08/28/24 History Allergies Allergy/AdvReac Type Severity Reaction Status Date / Time meperidine [From Demerol] Allergy Anaphylaxis Verified 08/28/24 14:33 Surgical - Exam Vital Signs Temp Pulse Resp BP Pulse Ox 98.9 F 118 H 20 121/77 96 08/28/24 11:01 08/28/24 11:01 08/28/24 11:01 08/28/24 11:01 08/28/24 11:01 Gen: AxO, NAD Pulm: non-labored respirations Abd: soft, tender in RUQ, montgomery's sign positive. Mildly distended. No guarding/rebound/rigidity Extrem: no edema seen Results - Labs 08/28/24 12:23 08/28/24 12:23 Abnormal Lab Results - Last 24 Hours (Table) 08/28/24 08/28/24 Range/Units 12: 12:23 WBC 18.5 H (3.8-10.6) k/uL Neutrophils # 16.8 H (1.3-7.7) k/uL BUN 8 L (9-20) mg/dL Glucose 119 H (74-99) mg/dL Diabetes panel 08/28/24 Range/Units 12:23 Sodium 139 (137-145) mmol/L Potassium 4.3 (3.5-5.1) mmol/L Chloride 103 (98-107) mmol/L Carbon Dioxide 30 (22-30) mmol/L BUN 8 L (9-20) mg/dL Creatinine 0.85 (0.66-1.25) mg/dL Glucose 119 H (74-99) mg/dL Calcium 9.7 (8.4-10.2) mg/dL AST 32 (17-59) U/L ALT 24 (4-49) U/L Alkaline Phosphatase 70 (38-126) U/L Total Protein 6.4 (6.3-8.2) g/dL Albumin 4.2 (3.5-5.0) g/dL Calcium panel 08/28/24 Range/Units 12: Calcium 9.7 (8.4-10.2) mg/dL Albumin 4.2 (3.5-5.0) g/dL Pituitary panel 08/28/24 Range/Units 12:23 Sodium 139 (137-145) mmol/L Potassium 4.3 (3.5-5.1) mmol/L Chloride 103 (98-107) mmol/L Carbon Dioxide 30 (22-30) mmol/L BUN 8 L (9-20) mg/dL Creatinine 0.85 (0.66-1.25) mg/dL Glucose 119 H (74-99) mg/dL Calcium 9.7 (8.4-10.2) mg/dL Adrenal panel 08/28/24 Range/Units 12:23 Sodium 139 (137-145) mmol/L Potassium 4.3 (3.5-5.1) mmol/L Chloride 103 (98-107) mmol/L Carbon Dioxide 30 (22-30) mmol/L BUN 8 L (9-20) mg/dL Creatinine 0.85 (0.66-1.25) mg/dL Glucose 119 H (74-99) mg/dL Calcium 9.7 (8.4-10.2) mg/dL Total Bilirubin 0.6 (0.2-1.3) mg/dL AST 32 (17-59) U/L ALT 24 (4-49) U/L Alkaline Phosphatase 70 (38-126) U/L Total Protein 6.4 (6.3-8.2) g/dL Albumin 4.2 (3.5-5.0) g/dL Assessment and Plan Assessment: 59-year-old male who presents with acute onset of right upper quadrant pain and ultrasonographic as well as cross-sectional imaging findings concerning for acute cholecystitis Plan: -N.p.o. -IV fluid hydration -As needed pain and nausea control -IV Unasyn antibiotic -DVT/GI prophylaxis -Will plan for laparoscopic cholecystectomy in the next 24 to 48 hours Santiago Shah M.D. General Surgery
[2024-08-28] MEDS: ACETAMINOPHEN TAB 500 MG TAB PO PRN (16:56)
[2024-08-28] MEDS: PIPERACILLIN-TAZOBACTAM 3.375 GM in SODIUM CHLORIDE 0.9% 100 ML IVPB SCH (18:18)
--- NOTE | 2024-08-29 10:51 | P.PN ---
Subjective Progress Note Date: 08/29/24 Patient with fevers overnight responding to Tylenol. No worsening abdominal pain. Patient endorses nonproductive cough. No shortness of breath or chest pain. No headache or blurry vision. Endorses bowel movement and flatus. Ambulatory and voiding. Objective - Vital Signs Vital signs: Vital Signs Temp 100.1 F H 08/29/24 07:11 Pulse 118 H 08/29/24 07:11 Resp 20 08/29/24 07:11 BP 116/65 08/29/24 07:11 Pulse Ox 91 L 08/29/24 07:11 FiO2 Intake & Output 08/28/24 08/29/24 08/29/24 18:59 06:59 18:59 Intake Total 200 Balance 200 Weight 68.039 kg Intake: Oral 200 Other: # Voids 4 - Exam Gen: AxO, NAD Pulm: non-labored respirations Abd: soft, non-tender, non-distended. Issa's negative at time of evaluation this morning Extrem: no edema seen - Labs CBC & Chem 7: 08/28/24 12:23 08/28/24 12:23 Labs: Abnormal Lab Results - Last 24 Hours (Table) 08/28/24 08/28/24 Range/Units 12:23 12:23 WBC 18.5 H (3.8-10.6) k/uL Neutrophils # 16.8 H (1.3-7.7) k/uL BUN 8 L (9-20) mg/dL Glucose 119 H (74-99) mg/dL Assessment and Plan Assessment: 59-year-old male who presents with acute onset of right upper quadrant pain and ultrasonographic as well as cross-sectional imaging findings concerning for acute cholecystitis Plan: -N.p.o. at midnight for lap philippe on 06/30; okay for CLD otherwise -Covid test -IV fluid hydration -As needed pain and nausea control -IV Unasyn antibiotic -DVT/GI prophylaxis -Will plan for laparoscopic cholecystectomy tomorrow Santiago Shah M.D. General Surgery
[2024-08-29] MEDS: PANTOPRAZOLE 40 MG/10 ML VIAL IVP SCH (15:48)
[2024-08-30 09:08] LABS: Basophils % (A) 0 %; Eosinophils # (A) 0.1 k/uL (0-0.7); Eosinophils % (A) 1 %; HGB 13.8 gm/dL (13.0-17.5); Lymphocytes # (A) 0.8 k/uL (1.0-4.8); Lymphocytes % (A) 4 %; MCH 32.4 pg (25.0-35.0); MCHC 32.1 g/dL (31.0-37.0); MCV 100.9 fL (80.0-100.0); Mean Platelet Volume 7.9; Monocytes # (A) 0.7 k/uL (0-1.0); Monocytes % (A) 3 %; Neutrophils # (A) 18.8 k/uL (1.3-7.7); Neutrophils % (A) 91 %; Platelet Count 164 k/uL (150-450); RBC 4.27 m/uL (4.30-5.90); RDW 12.7 % (11.5-15.5); WBC 20.6 k/uL (3.8-10.6)
[2024-08-30 09:24] LABS: ALT 20 U/L (4-49); AST 30 U/L (17-59); African American GFR (CKD) >90 (>60 ml/min/1.73 sqM); Albumin/Globulin Ratio 1.4; Alkaline Phosphatase 93 U/L (38-126); Anion Gap 8 mmol/L; Blood Urea Nitrogen 11 mg/dL (9-20); Calcium 8.3 mg/dL (8.4-10.2); Carbon Dioxide 22 mmol/L (22-30); Chloride 109 mmol/L (98-107); Globulin 2.2 g/dL; Glucose 90 mg/dL (74-99); Non-African American GFR(CKD) >90 (>60 ml/min/1.73 sqM); Potassium 3.8 mmol/L (3.5-5.1); Sodium 139 mmol/L (137-145); Total Bilirubin 0.3 mg/dL (0.2-1.3); Total Protein 5.2 g/dL (6.3-8.2)
[2024-08-30 13:29] VITALS: BMI 22.1
[2024-08-30] MEDS: IV FLUID CONTINUATION 1,000 ML IV ONE (13:33)
[2024-08-30] MEDS: DEXAMETHASONE SOD PHOSPHATE 4 MG/ML 1 ML VIAL IVP STA (13:39)
[2024-08-30] MEDS: ONDANSETRON 4 MG/2 ML VIAL IVP PRN (13:39)
[2024-08-30] MEDS: fentaNYL (PF) 50 MCG/ML 2 ML AMP IVP PRN (13:52)
[2024-08-30] MEDS: HEPARIN SODIUM,PORCINE 5,000 UNIT/ML 1 ML VIAL SQ STA (14:23)
[2024-08-30] MEDS ORDERED: SUCCINYLCHOLINE CHLORIDE 200 MG/10 ML VIAL IV ONE (14:25)
[2024-08-30] MEDS ORDERED: NEOSTIGMINE 1 MG/ML 10 ML VIAL ONE (14:25)
[2024-08-30] MEDS ORDERED: fentaNYL (PF) 50 MCG/ML 2 ML AMP ONE (14:25)
[2024-08-30] MEDS ORDERED: GLYCOPYRROLATE 0.2 MG/ML 2 ML VIAL ONE (14:25)
[2024-08-30] MEDS ORDERED: LIDOCAINE 1% INJ 10MG/ML (20 ML MDV) ONE (14:25)
[2024-08-30] MEDS ORDERED: MIDAZOLAM 2 MG/2 ML VIAL ONE (14:25)
[2024-08-30] MEDS ORDERED: ROCURONIUM 10 MG/ML (5 ML VIAL) IV ONE (14:25)
[2024-08-30] MEDS ORDERED: PROPOFOL 10 MG/ML 20 ML VIAL IV ONE (14:25)
[2024-08-30] MEDS ORDERED: PHENYLEPHRINE-0.9% NACL SYG 1,000 MCG/10 ML SYRINGE ONE (14:25)
--- NOTE | 2024-08-30 14:30 | P.PN ---
Progress Note - Text Progress Note Date: 08/30/24 Patient was seen by Dr. Saenz our locum surgeon yesterday and on the . Presents with complaints of epigastric right upper quadrant pain that began on Tuesday. Pain has not relieved. He has been on IV antibiotics. Liver enzymes are normal. Lactic acid is normal. White blood cell count remains significantly elevated. Had an ultrasound and a CAT scan both showing significant inflammatory changes of the gallbladder. Mild CBD dilation is noted. No obvious distal CBD pathology on CAT scan. Patient still having pain today. No history of similar events although looking back he says he may have had some intermittent vague epigastric abdominal pain at times. Remains tender in the right upper quadrant. Clinical scenario discussed in detail with the patient and his at the bedside. Will proceed with laparoscopic, possible open cholecystectomy at this time. Risks of bleeding, infection, bile leak, bile duct injury, retained common bile duct stone, trocar injury, conversion to an open procedure, hernia, anesthesia related complications were reviewed. The patient understands and wishes to proceed.
[2024-08-30] MEDS: BUPIVACAINE (PF) 0.25% 30 ML VIAL SQ ONE (14:56)
[2024-08-30] MEDS ORDERED: traMADol 50 MG TAB PO PRN (16:08)
--- NOTE | 2024-08-30 16:11 | P.OP ---
Date of Procedure: 08/30/24 Procedure(s) Performed: PREOPERATIVE DIAGNOSIS: Acute calculus cholecystitis POSTOPERATIVE DIAGNOSIS: Same with gangrenous changes PROCEDURE: Laparoscopic cholecystectomy SURGEON: Angelika EBL: 25 cc ANESTHESIA: Gen. COMPLICATIONS: None OPERATIVE PROCEDURE: The patient was brought and placed on the operating room table in the supine position. The patient was placed under general anesthesia at that time. The abdomen was prepped and draped in the usual sterile fashion. The gallbladder was able to be easily palpable through the abdominal wall prior to incision. A small curvilinear infraumbilical incision was made. The fascia was grasped with the Abel forceps. The fascia was retracted anteriorly. The Veress needle was advanced into the peritoneal cavity. The saline drop test was normal. Insufflation took place up to 15 mmHg. A 5 mm optical trocar was advanced and the peritoneal cavity. 2 additional 5 mm trochars were placed in the right upper quadrant under direct visualization. A 12 mm trocar was advanced into the epigastric incision site. The gallbladder was acutely inflamed. The omentum was adherent to the gallbladder. This was able to be swept inferiorly using blunt dissection. The gallbladder was then visualized. It was quite tense. It had gangrenous changes scattered throughout both the anterior and posterior surfaces. The LigaSure was utilized in this case to help with our dissection. The gallbladder was retracted superiorly and laterally. The peritoneum overlying the infundibulum was bluntly dissected. The patient's cystic duct was visualized. The junction between the cystic duct common and hepatic duct was identified. The critical view of safety was achieved after blunt dissection. The cystic duct was then divided after placement of a 2-0 Ethibond stitch and a 12 mm clip on the patient's side. The gallbladder was divided on the opposite side. There were gangrenous changes to the mucosa of the cystic duct. The cystic artery was identified and clipped as well. A small vessel was seen along the gallbladder fossa and clipped as well. The gall bladder was then removed from the liver bed using electrocautery and ligature. The gallbladder was then removed from the epigastric trocar site with an Endo Catch bag. The gallbladder fossa was irrigated with saline. There was no evidence of any bleeding or biliary drainage seen. A drain was placed in the gallbladder fossa exiting from the most lateral 5 mm right upper quadrant trocar site. This was sutured in place using a 3-0 silk stitch. The fascia at the 12 millimeter site was closed using a Garyon 0 Vicryl stitch. The trochars were then removed. The skin at all 3 sites was closed using a 4-0 Monocryl stitch. Skin glue was utilized on the incision sites. At the end of this procedure the sponge and needle counts were correct. DISPOSITION: Stable to the recovery room
--- NOTE | 2024-08-30 20:45 | XR ---
EXAMINATION TYPE: XR chest 2V DATE OF EXAM: 08/30/2024 8:38 PM CLINICAL INDICATION:Male, 59 years old with history of cough; PHH COMPARISON: None TECHNIQUE: XR chest 2V Frontal and lateral views of the chest. FINDINGS: Lungs/Pleura: Hazy bibasilar airspace opacities are identified. No pneumothorax. Pulmonary vascularity: Unremarkable. Heart/mediastinum: Cardiomediastinal silhouette is unremarkable. Musculoskeletal: No acute osseous pathology. IMPRESSION: Findings concerning for bibasilar airspace disease. [facility], , 08/30/2024 8:43 PM
[2024-08-31] MEDS: HEPARIN SODIUM,PORCINE 5,000 UNIT/ML 1 ML VIAL SQ SCH (00:23)
[2024-08-31] MEDS: HYDROmorphone 1 MG/ML 1 ML SYRINGE IVP PRN (00:24)
[2024-08-31] MEDS: HYDROcodone/APAP 5-325MG 1 EACH TAB PO PRN (08:29)
[2024-08-31 08:37] LABS: ALT 18 U/L (10-49); AST 26 U/L (14-35); Albumin 2.7 g/dL (3.8-4.9); Albumin/Globulin Ratio 1.42 Ratio (1.60-3.17); Alkaline Phosphatase 78 U/L (41-126); BUN/Creat Ratio 15.71 Ratio (12.00-20.00); Carbon Dioxide 22.5 mmol/L (21.6-31.8); Chloride 106 mmol/L (96-109); Globulin 1.9 g/dL (1.6-3.3); Glucose 117 mg/dL (70-110); Potassium 4.4 mmol/L (3.5-5.5); Sodium 139 mmol/L (135-145); Total Bilirubin 0.3 mg/dL (0.3-1.2); Total Protein 4.6 g/dL (6.2-8.2)
[2024-08-31 08:43] LABS: Basophils # (A) 0.02 X 10*3/uL (0.00-0.10); Basophils % (A) 0.1 %; Eosinophils # (A) 0 X 10*3/uL (0.04-0.35); Eosinophils % (A) 0 %; HCT 37.1 % (39.6-50.0); HGB 12.4 g/dL (13.0-17.0); Lymphocytes # (A) 0.92 X 10*3/uL (0.90-5.00); Lymphocytes % (A) 5.9 %; MCH 33.2 pg (27.0-32.0); MCHC 33.4 g/dL (32.0-37.0); MCV 99.2 FL (80.0-97.0); Mean Platelet Volume 11.2 FL (9.5-12.2); Monocytes # (A) 1.06 X 10*3/uL (0.20-1.00); Monocytes % (A) 6.7 %; NRBC Per 100 WBC 0 X 10*3/uL (0.00-0.01); Neutrophils # (A) 13.63 X 10*3/uL (1.80-7.70); Neutrophils % (A) 86.7 %; Platelet Count 173 X 10*3/uL (140-440); RBC 3.74 X 10*6/uL (4.40-5.60); RDW 13.9 % (11.5-14.5); WBC 15.72 X 10*3/uL (4.50-10.00)
[2024-08-31] MEDS ORDERED: DEXAMETHASONE SOD PHOSPHATE 4 MG/ML 1 ML VIAL IVP PRN (10:41)
[2024-08-31] MEDS ORDERED: IPRATROPIUM-ALBUTEROL 3 ML NEB INHALATION PRN (10:43)
--- NOTE | 2024-08-31 11:45 | P.PN ---
Subjective Progress Note Date: 08/31/24 SURGICAL PROGRESS NOTE CHIEF COMPLAINT: Acute calculus cholecystitis with gangrenous changes HISTORY OF PRESENT ILLNESS: Patient is postop day 1 status post laparoscopic cholecystectomy. Patient reports his pain is controlled. Denies any nausea or vomiting. Denies any flatus. KEYSHA drain 70 mL serosanguineous output. Chest x- ray reports bibasilar airspace disease. Patient does report a cough and some shortness of breath. Afebrile. WBC is down from 20-15 Hgb 12.4 total bilirubin 0.3 AST 26 ALT 18 alk phos 78 PHYSICAL EXAM: VITAL SIGNS: Reviewed. GENERAL: Well-developed in no acute distress. HEENT: No sclera icterus. Extraocular movements grossly intact. Moist buccal mucosa. Head is atraumatic, normocephalic. ABDOMEN: Soft. Nondistended. Incision sites clean dry and intact. KEYSHA drain serosanguineous output NEUROLOGIC: Alert and oriented. Cranial nerves II through XII grossly intact. ASSESSMENT: 1. Acute calculus cholecystitis with gangrenous changes 2. Cough with chest x-ray reporting bibasilar airspace disease PLAN: -Advance diet to low-fat -Continue antibiotics -Repeat CBC in a.m. -Consult pulmonary service for cough and abnormal chest x-ray -Encourage patient to ambulate -Encourage patient to use incentive spirometer -DVT prophylaxis subcu heparin and GI prophylaxis Protonix Physician Otorhinolaryngologist note has been reviewed by physician. Signing provider agrees with the documented findings, assessment, and plan of care. I have personally seen and examined the patient, reviewed the UNDERGROUND FOREMAN /PAs history, exam and MDM and agree with the assessment and plan as written. Based on total visit time, I have performed more than 50% of the visit. As above: Patient doing better today. Pain is improved. Labs noted. Continue antibiotics. Keep drain in place. Advance to low-fat diet. Hopefully discharge tomorrow. Objective - Vital Signs Vital signs: Vital Signs Temp 98.0 F 08/31/24 07:17 Pulse 58 L 08/31/24 07:17 Resp 18 08/31/24 08:30 BP 124/76 08/31/24 07:17 Pulse Ox 98 08/31/24 07:17 FiO2 Intake & Output 08/30/24 08/31/24 08/31/24 18:59 06:59 18:59 Intake Total 850 1080 Output Total 25 1000 Balance 825 80 Weight 68.039 kg Intake: IV 850 Oral 1080 Output: Drainage 150 Abdomen 150 Urine 850 Estimated Blood Loss 25 Other: Voiding Method Toilet Urinal Urinal # Voids 5 3 # Bowel Movements 1 - Labs CBC & Chem 7: 08/31/24 03:28 08/31/24 03:31 Labs: Abnormal Lab Results - Last 24 Hours (Table) 08/31/24 08/31/24 Range/Units 03:28 03:31 WBC 15.72 H (4.50-10.00) X 10*3/uL RBC 3.74 L (4.40-5.60) X 10*6/uL Hgb 12.4 L (13.0-17.0) g/dL Hct 37.1 L (39.6-50.0) % MCV 99.2 H (80.0-97.0) FL MCH 33.2 H (27.0-32.0) pg Immature Gran # 0.09 H (0.00-0.04) X 10*3/uL Neutrophils # 13.63 H (1.80-7.70) X 10*3/uL Monocytes # 1.06 H (0.20-1.00) X 10*3/uL Eosinophils # 0 L (0.04-0.35) X 10*3/uL Glucose 117 H (70-110) mg/dL Calcium 8.0 L (8.7-10.3) mg/dL Total Protein 4.6 L (6.2-8.2) g/dL Albumin 2.7 L (3.8-4.9) g/dL Albumin/Globulin Ratio 1.42 L (1.60-3.17) Ratio Microbiology - Last 24 Hours (Table) 08/28/24 15:08 Blood Culture - Preliminary Blood
[2024-08-31] MEDS: LORATADINE 10 MG TAB PO SCH (12:29)
--- NOTE | 2024-08-31 13:57 | P.CNPUL ---
History of Present Illness Consult date: 08/31/24 Requesting physician: Bong Carney Reason for consult: cough, hypoxemia, abnormal CXR/CT Chief complaint: Abdominal pain, chronic cough History of present illness: This is a very pleasant 59-year-old male patient with a known history of chronic cough for many years, gastroesophageal reflux disease, former smoker, previous appendectomy who had presented to the emergency department on 08/28/2024 with right upper quadrant abdominal, flank and back pain. He had an episode of nausea and vomiting following a meal. Dilatation of the common bile duct. Distal CBD stone or pathology in the differential diagnosis. Bladder with. Cholecystic fluid and fat stranding highly concerning for acute cholecystitis. No CT evidence for biliary ductal dilatation. Mild hepatomegaly. 2023 he had undergone an acute laparoscopic cholecystectomy and was found to have gangrenous changes and acute calculus cholecystitis. KEYSHA drain remains in place. He is seen today in consultation for cough and congestion. Chest x-ray reveals atelectatic changes in the bilateral bases. White count 15.7. Hemoglobin 12.4. Platelets 173. Sodium 139. Potassium 4.4. Bicarb 22. BUN 11. Creatinine 0.7. Glucose 117. COVID screen was negative. He is currently resting fairly comfortably in bed. Awake and alert in no acute distress. Maintaining O2 saturations in the 90s on 2 L/min cannula. He is afebrile. Hemodynamically stable. He needs increased encouragement regarding the use of the incentive spirometer. He states he has had a chronic cough for nearly 20 years. 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 He also has ongoing issues with gastroesophageal reflux disease maintained on Prilosec 40 mg daily. He has issues with sinus drainage and congestion on a nearly daily basis as well. He has not been seen by a dried fruit washer in the past. Review of Systems REVIEW OF SYSTEMS: CONSTITUTIONAL: Denies any recent significant weight loss or weight gain. EYES: Denies change in vision. EARS, NOSE, MOUTH, THROAT: Denies headaches, denies sore throat. CARDIOVASCULAR: Denies chest pain, palpitations or syncopal episodes. RESPIRATORY: As it of for chronic dry nonproductive cough, no hemoptysis. GASTROINTESTINAL: Positive for abdominal pain, nausea and emesis GENITOURINARY: Denies hematuria, denies infections. MUSKULOSKELETAL: Denies pain, denies swelling. INTEGUMENTARY: Denies rash, denies eczema. NEUROLOGICAL: Denies recent memory loss, no recent seizure activity. PSYCHIATRIC: Denies anxiety, denies depression. HEMATOLOGIC/LYMPHATIC: Denies anemia, denies enlarged lymph nodes. Past Medical History Past Medical History: GERD/Reflux History of Any Multi-Drug Resistant Organisms: MRSA Date of last positivie culture/infection: 01/30/21 MDRO Source:: Right fifth finger Past Surgical History: Appendectomy, Orthopedic Surgery, Tonsillectomy Additional Past Surgical History / Comment(s): right knee surgery, right great toe pin, partial amputation right thumb Past Psychological History: No Psychological Hx Reported Smoking Status: Former smoker Past Drug Use History: None Reported - Past Family History Mother Additional Family Medical History / Comment(s): skin cancer Father Additional Family Medical History / Comment(s): skin cancer Medications and Allergies Home Medications Medication Instructions Recorded Confirmed Type Naproxen 500 mg PO DAILY 01/17/21 08/28/24 History Cholecalciferol [Vitamin D3 (25 25 mcg PO DAILY 08/28/24 08/28/24 History Mcg = 1000 Iu)] L.acidoph,Paracasei, B.lactis 1 cap PO DAILY 08/28/24 08/28/24 History [Probiotic] Mv-Min/Folic/K1/Lycopen/Lutein 1 tab PO DAILY 08/28/24 08/28/24 History [Centrum Silver Men Tablet] Omeprazole [PriLOSEC] 40 mg PO DAILY 08/28/24 08/28/24 History Allergies Allergy/AdvReac Type Severity Reaction Status Date / Time meperidine [From Demerol] Allergy Anaphylaxis Verified 08/30/24 13:21 Physical Exam Vitals: Vital Signs Temp Pulse Resp BP Pulse Ox 08/31/24 08:30 18 08/31/24 07:17 98.0 F 58 L 18 124/76 98 08/31/24 00:12 98.1 F 65 15 129/75 96 08/30/24 21:55 69 118/75 98 08/30/24 21:41 67 108/69 94 L 08/30/24 21:25 74 121/79 93 L 08/30/24 21:10 69 121/77 93 L 08/30/24 20:55 76 116/76 87 L 08/30/24 20:40 72 121/77 91 L 08/30/24 20:10 68 119/75 97 08/30/24 19:56 83 112/70 96 08/30/24 19:40 63 122/76 95 08/30/24 19:25 68 120/77 97 08/30/24 19:11 85 124/79 97 08/30/24 18:55 72 120/76 96 08/30/24 18:40 83 122/75 96 08/30/24 18:26 75 120/81 95 08/30/24 18:10 98.2 F 72 17 118/74 93 L 08/30/24 17:57 98.2 F 83 18 121/82 93 L 08/30/24 17:13 88 16 116/69 93 L 08/30/24 16:58 82 16 117/69 92 L 08/30/24 16:43 79 16 125/67 93 L 08/30/24 16:28 89 16 109/62 95 08/30/24 16:13 98.7 F 87 16 138/82 95 08/30/24 14:04 98.1 F 91 16 139/82 92 L Intake and Output 08/30/24 08/31/24 08/31/24 22:59 06:59 14:59 Intake Total 100 1080 Output Total 305 720 Balance -205 360 Intake: IV 100 Oral 1080 Output: Drainage 80 70 Abdomen 80 70 Urine 200 650 Estimated Blood Loss 25 Other: Voiding Method Urinal Urinal # Voids 3 GENERAL EXAM: Alert, pleasant 59-year-old male patient, on 2 L nasal cannula, fairly comfortable in no apparent distress. HEAD: Normocephalic. EYES: Normal reaction of pupils, equal size. NOSE: Clear with pink turbinates. THROAT: No erythema or exudates. NECK: No masses, no JVD. CHEST: No chest wall deformity. LUNGS: Equal air entry with no crackles, wheeze, rhonchi or dullness. CVS: S1 and S2 normal with no audible murmur, regular rhythm. ABDOMEN: Surgical incision sites clean dry and well-approximated. KEYSHA drain in place with serosanguineous output. SPINE: No scoliosis or deformity SKIN: No rashes CENTRAL NERVOUS SYSTEM: No focal deficits, tone is normal in all 4 extremities. EXTREMITIES: There is no peripheral edema. No clubbing, no cyanosis. Peripheral pulses are intact. Results - Laboratory Findings CBC and BMP: 08/31/24 03:28 08/31/24 03:31 Abnormal lab findings: Abnormal Labs 08/28/24 08/28/24 08/30/24 12:23 12:23 08:48 WBC 18.5 H 20.6 H RBC 4.27 L Hgb Hct MCV 100.9 H MCH Immature Gran # Neutrophils # 16.8 H 18.8 H Lymphocytes # 0.8 L Monocytes # Eosinophils # Chloride BUN 8 L Glucose 119 H Calcium Total Protein Albumin Albumin/Globulin Ratio 08/30/24 08/31/24 08/31/24 08:48 03:28 03:31 WBC 15.72 H RBC 3.74 L Hgb 12.4 L Hct 37.1 L MCV 99.2 H MCH 33.2 H Immature Gran # 0.09 H Neutrophils # 13.63 H Lymphocytes # Monocytes # 1.06 H Eosinophils # 0 L Chloride 109 H BUN Glucose 117 H Calcium 8.3 L 8.0 L Total Protein 5.2 L 4.6 L Albumin 3.0 L 2.7 L Albumin/Globulin Ratio 1.42 L - Diagnostic Findings Chest x-ray: image reviewed Assessment and Plan Assessment: Acute hypoxemic respiratory failure secondary to abdominal surgery and pain, expected outcome. Chest x-ray reveals basilar atelectasis Abdominal pain secondary to gangrenous acute calculus cholecystitis, status post laparoscopic cholecystectomy. Postoperative day #1 Chronic cough of many years, suspect secondary to undertreated gastroesophageal reflux disease, possible underlying asthma, COPD, sinus drainage Former smoker Previous exposure to burn pits while in the Gastroesophageal reflux disease Plan: The patient was seen and evaluated Chest x-ray, labs and medications reviewed Encouraged the increased use of the incentive spirometer Encourage increased activity Increase pantoprazole to twice daily Add Singulair Add Claritin Continue Zosyn Add Decadron 4 mg every 6 hours x 4 doses Will do full pulmonary workup in our office postdischarge We will continue to follow and make further recommendations based on his clinical status I have personally seen and examined the patient, performed the documentation and the assessment and plan as written. Number of minutes spent on the visit: 20 Dictation was produced using [employer] dictation software. Please excuse any grammatical, word or spelling errors.
[2024-08-31] MEDS: DEXAMETHASONE SOD PHOSPHATE 4 MG/ML 1 ML VIAL IVP SCH (16:44)
[2024-08-31] MEDS: MONTELUKAST 10 MG TAB PO SCH (20:39)
[2024-08-31] MEDS: PANTOPRAZOLE 40 MG/10 ML VIAL IVP SCH (20:39)
[2024-09-01 03:08] VITALS: TEMP 97.5
[2024-09-01] MEDS: IBUPROFEN 600 MG TAB PO PRN (05:41)
[2024-09-01 08:13] VITALS: BP 162/75; PULSE 50; RESP 18
--- NOTE | 2024-09-01 11:50 | P.DS ---
Providers Date of admission: 08/28/24 14:04 Expected date of discharge: 09/01/24 Attending physician: Bong Carney Consults: 08/31/24 10:25 Consult Physician Routine Consulting Provider: Rajesh Olivera Consult Reason/Comments: cough Do you want consulting provider notified?: Yes Primary care physician: [facility] Course: Patient was admitted with right upper quadrant pain. He was started on IV antibiotics. Patient went to surgery 2 days after presentation for laparoscopic cholecystectomy. Patient was found to have gangrenous cholecystitis. Since patient had surgery his pain is gradually improved. White blood cell count improved yesterday at 15. No fevers. Was having some cough and mild shortness of breath which is improved. He was seen by pulmonary. Please refer to their consult. Today doing well. Drain is serous. Will plan discharge. Remove drain prior to discharge. Low-fat diet. Follow-up 1 week. Prescription for oxycodone and Levaquin provided. Patient Condition at Discharge: Fair Plan - Discharge Summary New Discharge Prescriptions: New Levofloxacin [Levaquin] 500 mg PO DAILY 5 Days #1 tab oxyCODONE HCL [OxyIR] 5 mg PO Q6H PRN 3 Days #6 tab PRN Reason: Breakthrough Pain No Action Mv-Min/Folic/K1/Lycopen/Lutein [Centrum Silver Men Tablet] 1 tab PO DAILY Cholecalciferol [Vitamin D3 (25 Mcg = 1000 Iu)] 25 mcg PO DAILY Naproxen 500 mg PO DAILY L.acidoph,Paracasei, B.lactis [Probiotic] 1 cap PO DAILY Omeprazole [PriLOSEC] 40 mg PO DAILY Discharge Medication List Naproxen 500 mg PO DAILY 01/17/21 [History] Cholecalciferol [Vitamin D3 (25 Mcg = 1000 Iu)] 25 mcg PO DAILY 08/28/24 [His tory] L.acidoph,Paracasei, B.lactis [Probiotic] 1 cap PO DAILY 08/28/24 [History] Mv-Min/Folic/K1/Lycopen/Lutein [Centrum Silver Men Tablet] 1 tab PO DAILY 08/28/24 [History] Omeprazole [PriLOSEC] 40 mg PO DAILY 08/28/24 [History] Levofloxacin [Levaquin] 500 mg PO DAILY 5 Days #1 tab 09/01/24 [Rx] oxyCODONE HCL [OxyIR] 5 mg PO Q6H PRN 3 Days #6 tab 09/01/24 [Rx] Follow up Appointment(s)/Referral(s): Rajesh Olivera MD [STAFF PHYSICIAN] - 1 Week [facility]Clinic [Primary Care Provider] - 1-2 days Bong Carney MD [Medical Doctor] - 1 Week
--- NOTE | 2024-09-01 14:44 | P.PN ---
Subjective Progress Note Date: 09/01/24 This is a very pleasant 59-year-old male patient with a known history of chronic cough for many years, gastroesophageal reflux disease, former smoker, previous appendectomy who had presented to the emergency department on 08/28/2024 with right upper quadrant abdominal, flank and back pain. He had an episode of nausea and vomiting following a meal. Dilatation of the common bile duct. Distal CBD stone or pathology in the differential diagnosis. Bladder with. Cholecystic fluid and fat stranding highly concerning for acute cholecystitis. No CT evidence for biliary ductal dilatation. Mild hepatomegaly. 2023 he had undergone an acute laparoscopic cholecystectomy and was found to have gangrenous changes and acute calculus cholecystitis. KEYSHA drain remains in place. He is seen today in consultation for cough and congestion. Chest x-ray reveals atelectatic changes in the bilateral bases. White count 15.7. Hemoglobin 12.4. Platelets 173. Sodium 139. Potassium 4.4. Bicarb 22. BUN 11. Creatinine 0.7. Glucose 117. COVID screen was negative. He is currently resting fairly comfortably in bed. Awake and alert in no acute distress. Maintaining O2 saturations in the 90s on 2 L/min cannula. He is afebrile. Hemodynamically stable. He needs increased encouragement regarding the use of the incentive spirometer. He states he has had a chronic cough for nearly 20 years. 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 He also has ongoing issues with gastroesophageal reflux disease maintained on Prilosec 40 mg daily. He has issues with sinus drainage and congestion on a nearly daily basis as well. He has not been seen by a manager personnel selection in the past. The patient is seen today September 01, 2024 in follow-up on the regular medical floor. He is currently up ambulating in his room. Doing quite a bit better today compared to yesterday. Pain is well-managed. Abdominal incisions clean dry and well-approximated. KEYSHA drain remains in place. Minimal serosanguineous drainage. His cough has improved on DuoNeb inhalations, Decadron, Claritin and Singulair. His Protonix was increased to twice daily. He is maintaining good O2 saturations in the upper 90s on room air. He is afebrile. Hemodynamically stable. He remains on Zosyn. Normal saline at 130 mL/h. Heparin for DVT prophylaxis. Objective - Vital Signs Vital signs: Vital Signs Temp 97.5 F L 09/01/24 07:23 Pulse 50 L 09/01/24 08:05 Resp 18 09/01/24 08:05 BP 162/75 09/01/24 07:23 Pulse Ox 97 09/01/24 11:45 FiO2 Intake & Output 08/31/24 09/01/24 09/01/24 18:59 06:59 18:59 Intake Total 500 1560 200 Output Total 30 25 Balance 500 1530 175 Intake: IV 1560 Sodium Chloride 0.9% 1, 1560 000 ml @ 130 mls/hr IV . [id number] [facility] Rx#:[id number] Oral 500 200 Output: Drainage 30 25 Abdomen 30 25 Other: Voiding Method Urinal Urinal # Voids 1 # Bowel Movements 1 - Exam GENERAL EXAM: Alert, 59-year-old male patient, on room air, comfortable in no apparent distress. HEAD: Normocephalic. EYES: Normal reaction of pupils, equal size. NOSE: Clear with pink turbinates. THROAT: No erythema or exudates. NECK: No masses, no JVD. CHEST: No chest wall deformity. LUNGS: Equal air entry with no crackles, wheeze, rhonchi or dullness. CVS: S1 and S2 normal with no audible murmur, regular rhythm. ABDOMEN: Surgical incision sites clean dry and well-approximated. KEYSHA drain in place with serosanguineous output. SPINE: No scoliosis or deformity SKIN: No rashes CENTRAL NERVOUS SYSTEM: No focal deficits, tone is normal in all 4 extremities. EXTREMITIES: There is no peripheral edema. No clubbing, no cyanosis. Peripheral pulses are intact. - Labs CBC & Chem 7: 08/31/24 03:28 08/31/24 03:31 Labs: Microbiology - Last 24 Hours (Table) 08/28/24 15:08 Blood Culture - Preliminary Blood Assessment and Plan Assessment: Acute hypoxemic respiratory failure secondary to abdominal surgery and pain, expected outcome. Chest x-ray reveals basilar atelectasis Abdominal pain secondary to gangrenous acute calculus cholecystitis, status post laparoscopic cholecystectomy. Postoperative day #2 Chronic cough of many years, suspect secondary to undertreated gastroesophageal reflux disease, possible underlying asthma, COPD, sinus drainage Former smoker Previous exposure to burn pits while in the [place] Gastroesophageal reflux disease Plan: The patient was seen and evaluated Medications reviewed Improved on Decadron, DuoNebs, Claritin and Singulair Continue the use of the incentive spirometer post discharge To follow-up with Dr. Olivera in 1 week I have personally seen and examined the patient, performed the documentation and the assessment and plan as written. Number of minutes spent on the visit: 10 Dictation was produced using [employer] dictation software. Please excuse any grammatical, word or spelling errors.
== END 2024-09-01 13:43 | disposition home or self-care (01) | DRG 418 ==
LOC: EC 10:51 → INTOOBSV 14:04 → 4SSUR 14:04 → OBSVTOIN 14:04 → 4SSUR 14:23
PROVIDERS: ADMIT Surgery; ATTEND Surgery
PROC: 0FT44ZZ Resection of Gallbladder, Percutaneous Endoscopic Approach (ICD-10-PCS; principal; 2024-08-30 09:15)
DX: K80.00 Calculus of gallbladder with acute cholecystitis without obstruction (principal); J98.11 Atelectasis; K82.A1 Gangrene of gallbladder in cholecystitis; J30.9 Allergic rhinitis, unspecified; K21.9 Gastro-esophageal reflux disease without esophagitis; R09.82 Postnasal drip; Z87.891 Personal history of nicotine dependence; Z79.899 Other long term (current) drug therapy; Z90.49 Acquired absence of other specified parts of digestive tract; Z88.5 Allergy status to narcotic agent
CPT/HCPCS: 36415; 71046; 74177; 76705; 80053; 81003; 82150; 83605; 83690; 84484; 85025; 87040; 87635; 88304; 93005; 96361; 96374; 96375; 96376; 99285